=== PATIENT | female | born 1985 | race Caucasian/White ===

== ENCOUNTER 2022-08-30 14:29 | Emergency (ER) | payer MEDICAID ==
[~2022-08-30] VITALS: Ht 162.6 cm; Wt 113.4 kg
[2022-08-30] MEDS ORDERED: KETOROLAC TROMETHAMINE 30 MG INJ ONE (14:42)
[2022-08-30] MEDS ORDERED: KETOROLAC TROMETHAMINE 30 MG INJ IM ONE (14:45)
--- NOTE | 2022-08-30 14:47 | NUR ---
PT IS IN ROOM #2A. DR NELSON EVALUATED THE PT.
[2022-08-30] MEDS ORDERED: NAPR-1164 PO (16:27)
[2022-08-30 16:45] VITALS: BP 134/80
--- NOTE | 2022-08-30 16:45 | NUR ---
PT WAS D/C'd TO HOME. D/C INSTRUCTIONS GIVEN TO THE PT BY DR NELSON.
== END 2022-08-30 16:46 | disposition home or self-care (01) ==
LOC: ER 14:33
DX: M79.601 Pain in right arm (principal); M25.561 Pain in right knee; M54.50 Low back pain, unspecified; Z79.899 Other long term (current) drug therapy; V03.99XA Pedestrian with other conveyance injured in collision with car, pick-up truck or van, unspecified whether traffic or nontraffic accident, initial encounter; Y93.89 Activity, other specified; Y92.89 Other specified places as the place of occurrence of the external cause; Y99.8 Other external cause status
CPT/HCPCS: 99284; 72170; 73030; 73080; 73110; 73564; 96372; J1885; A4663